=== PATIENT | male | born 1985 | race Caucasian/White ===

== ENCOUNTER 2018-01-15 17:21 | Emergency (ER) | payer SELFPAY ==
[~2018-01-15] VITALS: Ht 185.4 cm; Wt 87.7 kg
[2018-01-15] MEDS ORDERED: PRED20 PO (17:30)
[2018-01-15] MEDS ORDERED: PSEU60TA21 PO (17:30)
[2018-01-15] MEDS ORDERED: SODIUM CHLORIDE 0.9% 1,000 ML IV ONE (20:15)
[2018-01-15 21:22] VITALS: BP 130/91
== END 2018-01-15 21:20 | disposition home or self-care (01) ==
LOC: EMS 17:22
DX: T44.995A Adverse effect of other drug primarily affecting the autonomic nervous system, initial encounter (principal); R03.0 Elevated blood-pressure reading, without diagnosis of hypertension; R42 Dizziness and giddiness; Y92.89 Other specified places as the place of occurrence of the external cause
CPT/HCPCS: 93005; 96360; 99284; J7030